=== PATIENT | female | born 1975 | race Caucasian/White ===

== ENCOUNTER 2025-03-28 10:20 | Emergency (ER) | payer BC ==
[~2025-03-28] VITALS: Ht 162.6 cm; Wt 56.7 kg
[2025-03-28 10:28] VITALS: BP 119/90
[2025-03-28 11:26] LABS: PLATELET COUNT (AUTO) 202 K/uL (179-408); RED BLOOD CELL COUNT(AUTO) 4.16 MIL/uL (3.63-4.92); RED CELL DISTRIBUTION WIDTH 13.3 % (12.3-17.7); WHITE BLOOD COUNT (AUTO) 7.3 K/uL (3.8-11.8)
[2025-03-28 11:26] LABS: *BILIRUBIN,URIN 1+ (NEGATIVE); *BLOOD, URINE NEGATIVE (NEGATIVE); *KETONES,URINE NEGATIVE (NEGATIVE); *PROTEIN,URINE NEGATIVE (NEGATIVE); *UROBILINOGEN,URINE 0.2 E.U./dl (NORMAL); LEUKOCYTE ESTERASE ,URINE TRACE (NEGATIVE); NITRITE, URINE POSITIVE (NEGATIVE); UGLUCOSE NEGATIVE (NEGATIVE)
[2025-03-28 11:31] LABS: *CLARITY,URINE CLEAR (CLEAR); *COLOR,URINE YELLOW (YELLOW)
[2025-03-28] MEDS ORDERED: diphenhydrAMINE 50 MG/1 ML VIAL ONE (11:32)
[2025-03-28] MEDS ORDERED: METOCLOPRAMIDE HCL 10 MG/2 ML VIAL ONE (11:32)
[2025-03-28 11:33] LABS: *URINE HCG, QUAL NEGATIVE (NEGATIVE)
[2025-03-28 11:33] LABS: CREATININE 0.7 mg/dL (0.6-1.3); SODIUM SERUM 142 mmol/L (136-145); UREA NITROGEN, BLOOD 7 mg/dL (7-18)
[2025-03-28] MEDS: METOCLOPRAMIDE HCL 10 MG/2 ML VIAL IV ONE (11:38)
[2025-03-28] MEDS: diphenhydrAMINE 50 MG/1 ML VIAL IV ONE (11:38)
[2025-03-28 11:39] LABS: ASPARTATE AMINOTRANSFERASE 11 U/L (15-37); TOTAL PROTEIN, SERUM 7.5 g/dL (6.4-8.2)
[2025-03-28 11:40] LABS: SQUAMOUS EPITHELIAL CELL,UR FEW /HPF (NONE SEEN); URINE AMORPHOUS URATE FEW /HPF
[2025-03-28] MEDS: IV NORMAL SALINE 1000 ML BAG IV ONE (11:46)
[2025-03-28] MEDS ORDERED: METO-295 PO (12:22)
[2025-03-28 14:09] VITALS: BP 124/86; TEMP 97.5; O2SAT 100
== END 2025-03-28 14:10 | disposition home or self-care (01) ==
LOC: ER 10:20
DX: R42 Dizziness and giddiness (principal); R11.2 Nausea with vomiting, unspecified; E86.0 Dehydration
CPT/HCPCS: 99284; 96374; 96361; 96375; 80076; 80048; 81001; 84703; 83880; 85025; 85379; 85730; 87086; 84484; 36415; 93005; J1200; J2765; J7040; 87077; A4606; A4663